=== PATIENT | female | born 1990 | race Caucasian/White ===

== ENCOUNTER 2020-01-27 20:46 | Emergency (ER) | payer OTHER ==
[~2020-01-27] VITALS: Ht 162.6 cm; Wt 59.0 kg
[~2020-01-27 20:46] MED LIST: PROVENTIL3 ML/2.5 M IH
== END 2020-01-28 14:40 | disposition home or self-care (01) ==
LOC: ER 20:46
DX: O26.891 Other specified pregnancy related conditions, first trimester (principal); R33.8 Other retention of urine; Z34.01 Encounter for supervision of normal first pregnancy, first trimester

== ENCOUNTER → 2020-03-02 | Outpatient (CLI) | payer OTHER | END | disposition home or self-care (01) | LOC: PRENATAL 14:54 | PROVIDERS: ATTEND Obstetrics & Gynecology Maternal & Fetal Medicine | DX: O35.3XX0 Maternal care for (suspected) damage to fetus from viral disease in mother, not applicable or unspecified (principal); O34.02 Maternal care for unspecified congenital malformation of uterus, second trimester; Z36.89 Encounter for other specified antenatal screening ==

== ENCOUNTER 2020-07-06 13:32 | Inpatient (IN) | payer OTHER ==
[~2020-07-06] VITALS: Ht 162.6 cm; Wt 71.7 kg
[2020-07-06] MEDS ORDERED: PRENATAL CAPLE1 EAC1 PO (14:04)
== END 2020-07-08 14:29 | DRG 807 ==
LOC: LDR 13:32 → OB/GYN 20:05
PROVIDERS: ADMIT Obstetrics & Gynecology; ATTEND Obstetrics & Gynecology
PROC: 10E0XZZ Delivery of Products of Conception, External Approach (ICD-10-PCS; principal; 2020-07-06)
PROC: 0W8NXZZ Division of Female Perineum, External Approach (ICD-10-PCS; 2020-07-06)
PROC: 4A0HXFZ Measurement of Products of Conception, Cardiac Rhythm, External Approach (ICD-10-PCS; 2020-07-06)
DX: O80 Encounter for full-term uncomplicated delivery (principal); Z37.0 Single live birth; Z3A.37 37 weeks gestation of pregnancy

== ENCOUNTER 2021-11-25 09:24 | Outpatient (CLI) | payer OTHER ==
[~2021-11-25 09:24] MED LIST changes: +PRENATAL CAPLE1 EAC1 PO
== END 2021-11-25 09:33 | disposition home or self-care (01) ==
LOC: RAD 09:24
PROVIDERS: ATTEND Orthopaedic Surgery
DX: S92.511A Displaced fracture of proximal phalanx of right lesser toe(s), initial encounter for closed fracture (principal)

== ENCOUNTER 2023-09-13 15:59 | Emergency (ER) | payer OTHER ==
[~2023-09-13] VITALS: Ht 162.6 cm; Wt 56.7 kg
[2023-09-13 17:38] LABS: HEMATOCRIT 46.7 % (36.0-45.00); HEMOGLOBIN 16.4 g/dL (12.0-15.00); MEAN CELL VOLUME 90.7 fL (80.00-100.00); MEAN CORPUSCULAR HEMOGLOBIN 31.8 pg (27.00-32.0); MEAN CORPUSCULAR HGB CONC 35.1 g/dl (32.0-36.0); PLATELET COUNT 198 K/uL (150-450); RED BLOOD COUNT 5.15 M/uL (4.00-6.00); RED CELL DISTRIBUTION WIDTH 12.8 % (11.5-14.5)
[2023-09-13 17:56] LABS: ALBUMIN 4.4 gm/dL (3.4-5.0); BILIRUBIN TOTAL 0.68 mg/dL (0.3-1.2); CALCIUM 9.5 mg/dL (8.5-10.1); CREATININE SERUM 0.94 mg/dL (0.55-1.02); GFR 69.45; GLOBULINA 4.4 G/DL (2.4-3.5); POTASSIUM 3.69 mEq/L (3.5-5.1); TOTAL PROTEIN 8.8 gm/dL (6.4-8.2)
[2023-09-13] MEDS ORDERED: PROTONIX20 MG PO (21:25)
[2023-09-13] MEDS ORDERED: ONDANSETRON HCL4 MG PO (21:25)
[2023-09-13] MEDS ORDERED: INTESTINEX680 M1 PO (21:25)
[2023-09-13] MEDS ORDERED: LEVSIN0.125 MG PO (21:31)
== END 2023-09-13 21:45 ==
LOC: ER 16:00
PROVIDERS: Nurse Practitioner Family
DX: K52.89 Other specified noninfective gastroenteritis and colitis (principal); R11.10 Vomiting, unspecified; A05.9 Bacterial foodborne intoxication, unspecified; A08.8 Other specified intestinal infections

== ENCOUNTER 2025-01-28 08:17 | Emergency (ER) | payer OTHER ==
[~2025-01-28] VITALS: Ht 162.6 cm; Wt 54.4 kg
[~2025-01-28 08:17] MED LIST changes: +INTESTINEX680 M1 PO; +LEVSIN0.125 MG PO; +ONDANSETRON HCL4 MG PO; +PROTONIX20 MG PO
[2025-01-28] MEDS ORDERED: 0.9 % SODIUM CHLORIDE 1,000 ML IV ONE (10:00)
[2025-01-28] MEDS ORDERED: ONDANSETRON HCL 2 MG/ML VIAL IV ONE (10:00)
[2025-01-28] MEDS ORDERED: HYOSCYAMINE SULFATE 0.125 MG TAB.SUBL SL ONE (10:00)
[2025-01-28] MEDS ORDERED: FAMOtidine 10 MG/ML (4ML VIAL) IV PUSH ONE (10:00)
[2025-01-28 10:53] LABS: HEMATOCRIT 42.9 % (36.0-45.00); HEMOGLOBIN 14.8 g/dL (12.0-15.00); MEAN CELL VOLUME 89.5 fL (80.00-100.00); MEAN CORPUSCULAR HEMOGLOBIN 30.9 pg (27.00-32.0); MEAN CORPUSCULAR HGB CONC 34.5 g/dl (32.0-36.0); PLATELET COUNT 174 K/uL (150-450); RED BLOOD COUNT 4.79 M/uL (4.00-6.00); RED CELL DISTRIBUTION WIDTH 13.5 % (11.5-14.5)
[2025-01-28 16:50] LABS: BLOOD UREA NITROGEN 13 mg/dL (7-18); BUN CREA RATIO 16 (7.0-25.0); GFR 82.61; GLUCOSE FASTING 92 mg/dL (65-100); OSMOLALITY SERUM 274 MOSM/KG (275-295); POTASSIUM 3.77 mEq/L (3.5-5.1); SODIUM 137 mmol/L (136-145)
[2025-01-28 16:51] LABS: ALBUMIN 3.9 gm/dL (3.4-5.0); ALKALINE PHOSPHATASE 58 U/L (50-136); ALT/SGPT 24 U/L (12-78); AMYLASE 26 U/L (25-115); ANION GAP 11 (10.0-20.0); AST/SGOT 19 U/L (15-37); BILIRUBIN TOTAL 0.78 mg/dL (0.3-1.2); CALCIUM 8.7 mg/dL (8.5-10.1); CARBON DIOXIDE 25 mEq/L (21-32); CHLORIDE 105 mmol/L (98-107); GLOBULINA 4.1 G/DL (2.4-3.5); HCG QUANTITATIVE < 1 mUI/mL (1-3); LIPASE 54 U/L (13-75)
== END 2025-01-28 17:03 | disposition home or self-care (01) ==
LOC: ER 08:17
PROVIDERS: General Practice
DX: A05.9 Bacterial foodborne intoxication, unspecified (principal)